=== PATIENT | female | born 1985 | race Caucasian/White ===

== ENCOUNTER 2017-06-29 06:56 | Inpatient (IN) | payer BC ==
[2017-06-29] VITALS (61 sets, daily range): BP systolic 100–148; BP diastolic 55–115; PULSE 74–141; TEMP 98.1–98.5
[~2017-06-29] VITALS: Ht 165.1 cm; Wt 97.3 kg
[2017-06-29] MEDS ORDERED: SYNTHROID0.125 MG/T PO (07:23)
[2017-06-29] MEDS ORDERED: PRENATAL (07:24)
[2017-06-29 08:15] LABS: BASO % 0.4 % (0.0-2.0); EOS # 0.1 (0.0-0.7); EOS % 0.7 % (0-4.0); GRAN # 6.4 (1.4-6.5); LYMPH # 1.2 (1.2-3.4); LYMPH % 13.6 % (20.0-51.0); MEAN CELL VOLUME 84 fl (80.0-100.0); MEAN CORPUSCULAR HGB CONC 32 g/dl (33.0-37.0); MEAN PLATELET VOLUME 11.8 fl (7.4-10.4); MONO # 0.8 (0.1-0.6); MONO % 9.9 % (1.7-9.3); PLATELET COUNT 217 K/mm3 (130-400); RED BLOOD COUNT 4.15 M/mm3 (4.10-5.30); WHITE BLOOD COUNT 8.5 K/mm3 (4.8-10.8)
[2017-06-29 08:21] LABS: HEMATOCRIT 34.8 % (37.0-47.0); MEAN CORPUSCULAR HEMOGLOBIN 27 pg (27.0-31.0)
[2017-06-29] MEDS ORDERED: PERCOCET 325 MG1 TA2 PO (08:24)
[2017-06-29] MEDS ORDERED: MOTRIN 800800 MG/TAB PO (08:24)
[2017-06-30] VITALS: BP 110/57; PULSE 94
[2017-06-30 01:00] VITALS: BP 119/58; PULSE 96
[2017-06-30 05:00] VITALS: BP 118/68; PULSE 97; TEMP 97.8
[2017-06-30 07:01] VITALS: BP 111/69; PULSE 79; TEMP 97.6
[2017-06-30 07:12] LABS: HEMATOCRIT 28.1 % (37.0-47.0); HEMOGLOBIN 9.1 g/dl (12.5-16.0)
[2017-06-30 17:30] VITALS: BP 110/56; PULSE 84; TEMP 97.4
[2017-06-30 20:00] VITALS: BP 134/66; PULSE 86; TEMP 97.8
[2017-07-01 09:59] VITALS: BP 128/70; PULSE 80; TEMP 98.4
== END 2017-07-01 12:45 | disposition home or self-care (01) | DRG 765 ==
LOC: OB 06:56 → LDR 06:56 → OB 20:27
PROVIDERS: Obstetrics & Gynecology
PROC: 10D00Z1 Extraction of Products of Conception, Low, Open Approach (ICD-10-PCS; principal; 2017-06-29)
PROC: 3E033VJ Introduction of Other Hormone into Peripheral Vein, Percutaneous Approach (ICD-10-PCS; 2017-06-29)
DX: O13.4 Gestational [pregnancy-induced] hypertension without significant proteinuria, complicating childbirth (principal); O98.312 Other infections with a predominantly sexual mode of transmission complicating pregnancy, second trimester; A56.02 Chlamydial vulvovaginitis; O99.284 Endocrine, nutritional and metabolic diseases complicating childbirth; E03.9 Hypothyroidism, unspecified; O62.1 Secondary uterine inertia; O40.3XX0 Polyhydramnios, third trimester, not applicable or unspecified; O99.824 Streptococcus B carrier state complicating childbirth; O26.843 Uterine size-date discrepancy, third trimester; O64.0XX0 Obstructed labor due to incomplete rotation of fetal head, not applicable or unspecified; O26.86 Pruritic urticarial papules and plaques of pregnancy (PUPPP); Z3A.38 38 weeks gestation of pregnancy; Z37.0 Single live birth
CPT/HCPCS: J0171; J0690; J1885; J2270; J2370; J2405; J2540; J2590; J2795; J7120